=== PATIENT | female | born 1970 | race Two or more races ===

== ENCOUNTER 2019-04-04 06:08 | Day surgery (SDC) | payer OTHER ==
[~2019-04-04 06:08] MED LIST: NEXIUM40 M1 PO
== END 2019-04-04 14:05 | disposition home or self-care (01) ==
LOC: CIR.AMB 06:08
DX: D28.2 Benign neoplasm of uterine tubes and ligaments (principal); N73.6 Female pelvic peritoneal adhesions (postinfective)